=== PATIENT | male | born 1990 | race Caucasian/White ===

== ENCOUNTER 2019-02-02 14:27 | Day surgery (SDC) | payer OTHER ==
[2019-02-02] VITALS (14 sets, daily range): BP systolic 128–154; BP diastolic 70–85; PULSE 70–106; RESP 13–22; Ht 170.2 cm; Wt 69.3 kg
[~2019-02-02] VITALS: Ht 170.2 cm; Wt 69.3 kg
--- NOTE | 2019-02-02 16:38 | PREAC ---
Date/Time of Note Date/Time of Note DATE: 02/02/19 TIME: 16:36 Anesthesia Eval and Record Evaluation Time Pre-Procedure Interview DATE: 02/02/19 TIME: 16:36 Age 28 Sex male NPO: 8 hrs Preoperative diagnosis NASAL SEPTAL DEVIATION, SUBMUCOUS RESECTION OF INFERIOR TURBINATE Planned procedure TURBINATE HYPERTROPHY, ADENOIDECTOMY Past Medical History Past Medical History: None Surgery & Anesthesia Issues No known issue Meds Anticoagulation: No Beta Rocky within 24 hr: No Reason Beta Rocky not given: Pt. not on B-Rocky No Active Prescriptions or Reported Meds Meds reviewed: Yes Allergies Coded Allergies: Penicillins (Verified Allergy, Severe, SWELLING, SOB, 02/02/19) Allergies Reviewed: Yes Labs/Studies Labs Reviewed: Reviewed by anesthesiologist test: N/A Pre-procedure Exam Last vitals Vital Signs Date Temp Pulse Resp B/P (MAP) Pulse Ox O2 O2 Flow FiO2 Time Delivery Rate 02/02/19 98.4 70 18 128/70 99 Room Air 15:33 (89) Airway: Adequate mouth opening, Adequate thyromental dist Mallampati: Mallampati II Teeth: Normal Lung: Normal Heart: Normal ASA Physical Status ASA physical status: 1 Emergency: None Planned Anesthetic General/MAC: ETT Planned Pain Management Parenteral pain med Pre-operative Attestations Prior to commencing anesthesia and surgery, the patient was re-evaluated, there was verification of: *The patient's identity *The results of appropriate recent lab work and preoperative vital signs *The above evaluation not changing prior to induction *Anesthetic plan, risk benefits, alternative and complications discussed with patient/family; questions answered; patient/family understands, accepts and wishes to proceed. Kory Romero M.D. Feb 02, 2019 16:38
[2019-02-02] MEDS ORDERED: LIDOCAINE 1%/EPI (1:100,000) (MDV) 20 ML ONE (16:39)
[2019-02-02] MEDS ORDERED: LIDOCAINE 2% (SDV) 5 ML INJ ONE (16:40)
[2019-02-02] MEDS ORDERED: EPINEPHrine 1 MG INJ ONE (16:40)
[2019-02-02] MEDS ORDERED: COCAINE 4% 4 ML TOP ONE ×2 (16:40→17:15)
[2019-02-02] MEDS ORDERED: BACITRACIN/POLYMYXIN 28.35 GM OINT TOP ONE (16:40)
[2019-02-02] MEDS ORDERED: DESFLURANE 15 MIN ONE (16:40)
[2019-02-02] MEDS ORDERED: NEOSTIGMINE 3 MG/3 ML SYRINGE ONE (16:41)
[2019-02-02] MEDS ORDERED: CEFAZOLIN 1 GM INJ ONE (16:41)
[2019-02-02] MEDS ORDERED: GLYCOPYRROLATE 0.4 MG INJ ONE (16:41)
[2019-02-02] MEDS ORDERED: ROCURONIUM 50 MG INJ ONE (16:41)
[2019-02-02] MEDS ORDERED: PROPOFOL 20 ML ONE (16:41)
[2019-02-02] MEDS ORDERED: ONDANSETRON 4 MG INJ ONE (16:42)
[2019-02-02] MEDS ORDERED: DEXAMETHASONE 4 MG/ML 5 ML INJ ONE (16:42)
[2019-02-02] MEDS ORDERED: MIDAZOLAM 1 MG/ML 2 ML INJ ONE (16:42)
[2019-02-02] MEDS ORDERED: FENTAnyl 50 MCG/ML VIAL ONE (16:42)
[2019-02-02] MEDS ORDERED: OXYCODONE/ACETAMINOPHEN (5/325) TAB PO PRN ×2 (17:00)
[2019-02-02] MEDS ORDERED: MIDAZOLAM 1 MG/ML 2 ML INJ IV PRN (17:00)
[2019-02-02] MEDS ORDERED: ONDANSETRON 4 MG INJ IV PRN (17:00)
[2019-02-02] MEDS ORDERED: hydrALAzine 20 MG INJ IV PRN (17:00)
[2019-02-02] MEDS ORDERED: EPHEDrine SULFATE 50 MG/5 ML SYG IV PRN (17:00)
[2019-02-02] MEDS ORDERED: MEPERIDINE 25 MG INJ IV PRN (17:00)
[2019-02-02] MEDS ORDERED: HYDROmorphONE 1 MG/5 ML IV SYRINGE IV PRN ×3 (17:00)
[2019-02-02] MEDS ORDERED: ALBUTEROL 0.083% (NEB) 2.5 MG/3 ML AMP HHN PRN (17:00)
[2019-02-02] MEDS ORDERED: DIPHENHYDRAMINE 50 MG INJ IV PRN (17:00)
[2019-02-02] MEDS ORDERED: IPRATROPIUM (NEB) 0.5 MG/2.5 ML AMP HHN PRN (17:00)
[2019-02-02] MEDS ORDERED: LABETALOL HCL 20MG INJ IV PRN (17:00)
[2019-02-02] MEDS ORDERED: TRIMETHOBENZAMIDE 100 MG/ML VIAL IM PRN (17:00)
[2019-02-02] MEDS ORDERED: FENTAnyl 50 MCG/ML VIAL IV PRN ×3 (17:00)
--- NOTE | 2019-02-02 17:10 | HPN ---
Date/Time of Note Date/Time of Note DATE: 02/02/19 TIME: 17:10 Interval H&P Admission Note Pt. seen H&P reviewed: No system changes REYNA CRUZ MD Feb 02, 2019 17:10
[2019-02-02] MEDS ORDERED: LIDOCAINE 1%/EPI 30 ML INJ INJ ONE (17:16)
--- NOTE | 2019-02-02 17:50 | OPR ---
Date/Time of Note Date/Time of Note DATE: 02/02/19 TIME: 17:47 Operative Report Procedure Date: Feb 02, 2019 Preoperative Diagnosis DNS, ITH, Adenoid hypertrophy Postoperative Diagnosis Same Operation/Procedure Performed Septoplasty, submucous resection of inferior turbinates. Adenoidectomy. Surgeon see signature line Technical Operations Specialist None Anesthesia Type: general Estimated Blood Loss: 10 - 50 ml's Transfusion none Specimen None Grafts/Implants none Complications none Pt Condition Post Procedure: stable Disposition: PACU Indications Nasal congestion. Procedure Description Description of procedure: The patient was identified in the holding area. We had a discussion to confirm understanding of all indications risks benefits alternatives and postoperative care associated with the operation. The patient signed informed consent was taken to the operating room. The patient was laid supine on the operating room table and general anesthesia was achieved without difficulty. The face was draped in sterile fashion and the nose was packed with 4% cocaine pledgets. The nasal septum was infiltrated with 5 cc of 1% lidocaine with epinephrine in the submucoperiosteal plane bilaterally. A [place] gag was used to open the mouth and keep retracted. Indirect visualization of the nasopharynx was performed and adenoid tissue seen. It was all liquified and removed with suction bovie cautery. No bleeding occurred and the nasopharynx was clear. A left sided [place] incision was made and submucoperichondreal flaps were ra ised. The bony cartilaginous junction of the septum was identified and entered. A deviated segments of bone and cartilage were isolated. A double-action scissor was used to transect the bony deviated segment of the skull base after which a [place] forcep was used to resect deviated segment of bone and cartilage. Care was taken to avoid excess cartilaginous resection. The flaps were returned to normal position and anterior rhinoscopy reveals midline septum. At this point the right inferior turbinate was medialized with a [place] elevator. The Coblation wand on a setting of 6 was used to enter the turbinate in the inferior medial submucosal compartment. 10 seconds of Coblation were performed at the 3rd 2nd and 1st limon after which the turbinate was crushed laterally into the lateral nasal wall with a Steinberg elevator. The contralateral turbinate was addressed in similar fashion to complete the bilateral submucous resection and lateral fracturing of the inferior turbinates. Septal flaps were replaced. A Merocel pack was placed on each side. The patient was awakened, extubated and taken to the PACU in stable condition. Complications: None. REYNA CRUZ MD Feb 02, 2019 17:50
[2019-02-02] MEDS ORDERED: morphine 2 MG INJ IV PRN (18:00)
--- NOTE | 2019-02-03 15:49 | PAC ---
Date/Time of Note Date/Time of Note DATE: 02/03/19 TIME: 15:48 Post-Anesthesia Notes Post-Anesthesia Note Last documented vital signs Vital Signs Date Temp Pulse Resp B/P (MAP) Pulse Ox O2 O2 Flow FiO2 Time Delivery Rate 02/02/19 92 22 140/81 99 Room Air 18:47 (100) 02/02/19 99.7 18:03 Activity: WNL Respiratory function: WNL Cardiovascular function: WNL Mental status: Baseline Pain reasonably controlled: Yes Hydration appropriate: Yes Nausea/Vomiting absent: Yes Kory Romero M.D. February 03, 2019 15:49
== END 2019-02-02 19:01 | disposition home or self-care (01) ==
LOC: SDS 14:27
PROVIDERS: ATTEND Otolaryngology
DX: J35.2 Hypertrophy of adenoids (principal); J34.2 Deviated nasal septum
CPT/HCPCS: 30140; 30520; 42831; J0690; J1100; J2175; J2250; J2405; J2710; J3010; Z7512; Z7610; J0171